=== PATIENT | male | born 1960 | race Caucasian/White ===

== ENCOUNTER 2017-01-28 07:10 | Outpatient (CLI) | payer BC ==
[2017-01-28 08:08] LABS: Cardiac Risk 3.3 (Less than 4.5)
== END 2017-01-28 07:11 ==
LOC: NAVSJIPCSP 07:10 → NAV LAB 07:11
PROVIDERS: ATTEND Internal Medicine
DX: E78.5 Hyperlipidemia, unspecified (principal)
CPT/HCPCS: 80061